=== PATIENT | female | born 2000 | race Caucasian/White ===

== ENCOUNTER 2023-11-13 22:38 | Emergency (ER) | payer SELFPAY ==
[~2023-11-13] VITALS: Ht 154.9 cm; Wt 63.6 kg
[2023-11-13 22:44] VITALS: BP 120/82; TEMP 97.5
[2023-11-13] MEDS ORDERED: Sulfamethoxazole/Trimethoprim 800-160 MG TAB PO ONE (23:00)
[2023-11-13 23:13] VITALS: PULSE 84
[2023-11-14] MEDS ORDERED: CEPHALEXIN500 M1 PO (15:52)
== END 2023-11-13 23:13 | disposition home or self-care (01) ==
LOC: COL.ER 22:38
DX: L03.313 Cellulitis of chest wall (principal); F17.200 Nicotine dependence, unspecified, uncomplicated